=== PATIENT | female | born 1960 | race Caucasian/White ===

== ENCOUNTER 2019-12-01 03:24 | Observation (INO) | payer BC ==
[2019-12-01] MEDS ORDERED: Lidocaine 2% Jelly 5 ML Tube ONE (03:53)
[2019-12-01] MEDS ORDERED: Loperamide 2 MG Cap ONE (03:53)
[2019-12-01] MEDS ORDERED: Sodium Chloride 0.9% 1,000 ML IV ONE (03:55)
[2019-12-01] MEDS ORDERED: HYDROmorphone 1 MG/ML Syringe IVPUSH ONE (04:28)
--- NOTE | 2019-12-01 04:29 | EDM.PDOC ---
ED HPI GENERAL MEDICAL PROBLEM - General Chief Complaint: Gastrointestinal Problem Stated Complaint: diarrhea, hemorrhoids Time Seen by Provider: 12/01/19 03:45 Source of Information: Reports: Patient History Limitations: Reports: No Limitations - History of Present Illness INITIAL COMMENTS - FREE TEXT/NARRATIVE: Patient has diarrhea. That has been going on the past 2 weeks. Since starting her potassium. She says that her hypertension medication has been causing her to have lower potassium. She also has nausea but that has now subsided. She does have a history of a hysterectomy and she had adhesions afterwards and had to have a subcolon resection. She is also complaining of rectal pain and possible internal hemorrhoids. She does not have an appetite. We will be admitting her to observation. Please use this dictation as her admitting history and physical. She received 1 L of IV fluids. She also has hypokalemia and hypocalcemia and also hypo-magnesium. We will also be correcting her electrolyte imbalance and also combat her diarrhea with Imodium and Lomotil. We may also have to use Questran. Her and her were agreeable with this plan. Onset: Gradual Duration: Getting Worse Severity: Moderate Improves with: Reports: None Context: Denies: Sick Contact Associated Symptoms: Reports: Fever/Chills, Loss of Appetite, Malaise, Nausea/ Vomiting, Weakness anal area Pain Score (Numeric/FACES): 1 - Related Data Allergies Allergy/AdvReac Type Severity Reaction Status Date / Time No Known Allergies Allergy Verified 12/01/19 04:21 Home Meds: Home Meds Escitalopram [Lexapro] 20 mg PO DAILY 12/01/19 [History] Lutein 20 mg PO DAILY 12/01/19 [History] Multivitamin [Multi-Vitamin Daily] 1 tab PO DAILY 12/01/19 [History] atorvaSTATin [Lipitor] 20 mg PO DAILY 12/01/19 [History] hydroCHLOROthiazide [Hydrochlorothiazide] 12.5 mg PO DAILY 12/01/19 [History] Past Medical History - Past Surgical History Other Surgical History Comment: Hysterectomy and subtotal colectomy Social & Family History - Tobacco Use Smoking Status *Q: Current Status Unknown ED ROS GENERAL - Review of Systems Review Of Systems: Comprehensive ROS is negative, except as noted in HPI. ED EXAM, GI/ABD - Physical Exam Exam: See Below Exam Limited By: No Limitations General Appearance: Alert (Appears to be lethargic), Lethargic, Moderate Distress Head: Atraumatic, Normocephalic Neck: Normal Inspection, Supple Respiratory/Chest: No Respiratory Distress, Lungs Clear Cardiovascular: Normal Peripheral Pulses, Regular Rate, Rhythm GI/Abdominal Exam: Normal Bowel Sounds, Soft, Tender Neurological: Alert Psychiatric: Normal Affect Skin Exam: Warm, Dry Lymphatic: No Adenopathy Course - Vital Signs Last Recorded V/S: Last Vital Signs Temp 36.6 C 12/01/19 04:51 Pulse 90 12/01/19 04:51 Resp 16 12/01/19 04:51 BP 113/55 L 12/01/19 04:51 Pulse Ox 97 12/01/19 04:51 - Orders/Labs/Meds Orders: Active Orders 24 hr Category Date Time Status Patient Status [ADT] Routine ADT 12/01/19 04:49 Active Antiembolic Devices [RC] 08,20 Care 12/01/19 04:52 Active VTE/DVT Education [RC] .PRN Care 12/01/19 04:52 Active Vital Signs [RC] 02,06,10,14,18,22 Care 12/01/19 04:51 Active Regular Diet [DIET] Diet 12/01/19 Breakfast Active Acetaminophen [Tylenol] Med 12/01/19 04:50 Active 650 mg PO Q4H PRN DVT/VTE Prophylaxis Reflex [OM.PC] Routine Oth 12/01/19 04:50 Ordered Medication Orders Acetaminophen (Tylenol) 650 mg PO Q4H PRN PRN Reason: analgesia/fever Atorvastatin Calcium (Lipitor) 20 mg PO BEDTIME [facility] Hydrochlorothiazide (Hydrochlorothiazide) 12.5 mg PO DAILY [facility] Sodium Chloride (Normal Saline) 1,000 mls @ 75 mls/hr IV ASDIRECTED [facility] Magnesium Sulfate 2 gm/ Premix 50 mls @ 25 mls/hr IV ONETIME ONE Stop: 12/01/19 12:11 Potassium Chloride 20 meq/ (Premix) 50 mls @ 25 mls/hr IV ONETIME ONE Stop: 12/01/19 12:11 Escitalopram 20mg ( (Own Supply)) 1 each PO DAILY [facility] Ondansetron HCl (Zofran) 4 mg IVPUSH Q8H PRN PRN Reason: Nausea Labs: Laboratory Tests 12/01/19 12/01/19 Range/Units 04:07 04:07 WBC 13.4 H (4.0-10.0) x10^3/uL RBC 4.51 (4.00-5.50) x10^6/uL Hgb 13.8 (12.0-16.0) g/dL Hct 39.0 (33.0-47.0) % MCV 86.5 (78.0-93.0) fL MCH 30.6 (26.0-32.0) pg MCHC 35.4 (32.0-36.0) g/dL RDW Coeff of Harry 11.1 (10.0-15.0) % Plt Count 336 (130-400) x10^3/uL Neut % (Auto) 81.8 H (50.0-80.0) % Lymph % (Auto) 6.3 L (25.0-50.0) % [place] % (Auto) 11.4 H (2.0-11.0) % Eos % (Auto) 0.4 (0.0-4.0) % Baso % (Auto) 0.1 L (0.2-1.2) % Sodium 138 (136-145) mmol/L Potassium 3.1 L (3.5-5.1) mmol/L Chloride 98 (98-107) mmol/L Carbon Dioxide 30 (21-32) mmol/L Anion Gap 13.1 (10-20) mmol/L BUN 9 (7-18) mg/dL Creatinine 0.8 (0.55-1.02) mg/dL Est Cr Clr Drug Dosing 50.77 mL/min Estimated GFR (MDRD) > 60 Glucose 126 H (74-106) mg/dL Calcium 8.2 L (8.5-10.1) mg/dL Corrected Calcium 8.60 (8.5-10.1) mg/dL Magnesium 1.5 L (1.8-2.4) mg/dL Total Bilirubin 0.2 (0.2-1.0) mg/dL AST 14 L (15-37) U/L ALT 17 (14-59) U/L Alkaline Phosphatase 120 H (46-116) U/L NT-Pro-B Natriuret Pep 13 (<=125) pg/mL Total Protein 7.0 (6.4-8.2) g/dL Albumin 3.5 (3.4-5.0) g/dL Globulin 3.5 Albumin/Globulin Ratio 1.00 Meds: Medications Generic Name Dose Route Start Last Admin Trade Name Freq PRN Reason Stop Dose Admin Acetaminophen 650 mg 12/01/19 04:50 Tylenol PO Q4H PRN analgesia/fever Atorvastatin Calcium 20 mg 12/01/19 20:00 Lipitor PO BEDTIME ILENE Hydrochlorothiazide 12.5 mg 12/01/19 10:17 Hydrochlorothiazide PO DAILY ILENE Sodium Chloride 1,000 mls @ 75 mls/hr 12/01/19 08:00 Normal Saline IV ASDIRECTED ILENE Magnesium Sulfate 2 gm/ Premix 50 mls @ 25 mls/hr 12/01/19 10:12 IV 12/01/19 12:11 ONETIME ONE Potassium Chloride 20 meq/ 50 mls @ 25 mls/hr 12/01/19 10:12 Premix IV 12/01/19 12:11 ONETIME ONE Escitalopram 20mg ( 1 each 12/01/19 10:19 Own Supply) PO DAILY [facility] Ondansetron HCl 4 mg 12/01/19 09:48 Zofran IVPUSH Q8H PRN Nausea Discontinued Medications Generic Name Dose Route Start Last Admin Trade Name Obiq PRN Reason Stop Dose Admin Citalopram Hydrobromide 40 mg 12/01/19 10:19 Celexa PO DAILY [facility] Hydrochlorothiazide 12.5 mg 12/01/19 08:45 12/01/19 09:03 Hydrochlorothiazide PO Not Given DAILY ILENE Hydromorphone HCl 0.5 mg 12/01/19 04:28 12/01/19 04:33 Dilaudid IVPUSH 12/01/19 04:29 0.5 mg ONETIME ONE Administration Magnesium Chloride 128 mg 12/01/19 08:28 12/01/19 09:05 Mag-64 PO 12/01/19 08:29 128 mg ONETIME ONE Administration Non-Formulary Medication 20 mg 12/01/19 08:45 12/01/19 10:50 Escitalopram [Lexapro] PO Not Given DAILY ILENE Potassium Chloride 40 meq 12/01/19 08:29 12/01/19 09:04 Klor-Con 10 PO 12/01/19 08:30 40 meq ONETIME STA Administration Departure - Departure Time of Disposition: 04:15 Disposition: DC[facility] to [facility] 05 Condition: Good Clinical Impression: Hypokalemia, Hypomagnesemia, Hypocalcemia - Discharge Information *PRESCRIPTION DRUG MONITORING PROGRAM REVIEWED*: Not Applicable *COPY OF PRESCRIPTION DRUG MONITORING REPORT IN PATIENT [place]: Not Applicable Sepsis Event Note - Focused Exam Vital Signs: Vital Signs Temp Pulse Resp BP Pulse Ox 12/01/19 04:51 36.6 C 90 16 113/55 L 97 Date Exam was Performed: 12/01/19 Time Exam was Performed: 11:14 - My Orders Last 24 Hours: My Active Orders 12/01/19 04:49 Patient Status [ADT] Routine 12/01/19 04:50 Acetaminophen [Tylenol] 650 mg PO Q4H PRN DVT/VTE Prophylaxis Reflex [OM.PC] Routine 12/01/19 04:51 Vital Signs [RC] 02,06,10,14,18,22 12/01/19 04:52 Antiembolic Devices [RC] 08,20 VTE/DVT Education [RC] .PRN 12/01/19 Breakfast Regular Diet [DIET] - Assessment/Plan Last 24 Hours: My Active Orders 12/01/19 04:49 Patient Status [ADT] Routine 12/01/19 04:50 Acetaminophen [Tylenol] 650 mg PO Q4H PRN DVT/VTE Prophylaxis Reflex [OM.PC] Routine 12/01/19 04:51 Vital Signs [RC] 02,06,10,14,18,22 12/01/19 04:52 Antiembolic Devices [RC] 08,20 VTE/DVT Education [RC] .PRN 12/01/19 Breakfast Regular Diet [DIET]
[2019-12-01 07:03] LABS: ANION GAP 13.1 mmol/L (10-20); CHLORIDE,CL 98 mmol/L (98-107); SODIUM,NA 138 mmol/L (136-145)
[2019-12-01] MEDS: Sodium Chloride 0.9% 1,000 ML IV SCH ×2 (08:00→18:33)
[2019-12-01] MEDS ORDERED: Magnesium Chloride 64 MG Tab.ER PO ONE (08:28)
[2019-12-01] MEDS ORDERED: Potassium Chloride 10 MEQ Tab.ER PO STA (08:29)
[2019-12-01] MEDS ORDERED: Hydrochlorothiazide 25 MG Tab PO SCH (08:45)
[2019-12-01] MEDS ORDERED: Non-Formulary Medication 1 Each (Escitalopram [Lexapro] 20 MG) PO SCH (08:45)
[2019-12-01] MEDS ORDERED: Magnesium Sulfate/Water 2 GM in Premix Bag 1 BAG IV ONE (10:12)
[2019-12-01] MEDS ORDERED: Potassium Chloride Riders 20 MEQ in Premix Bag 1 BAG IV ONE (10:12)
[2019-12-01] MEDS ORDERED: Hydrochlorothiazide 12.5 MG Cap PO SCH (10:17)
[2019-12-01] MEDS ORDERED: Citalopram 20 MG Tab PO SCH (10:19)
[2019-12-01] MEDS ORDERED: ESCITALOPRAM 20 MG PO SCH (10:19)
[2019-12-01] MEDS: Ondansetron 4 MG/2 ML SDV IVPUSH PRN (11:14)
[2019-12-01] MEDS: LUTEIN 20 MG PO SCH (15:37)
[2019-12-01] MEDS ORDERED: Atropine/Diphenoxylate 0.025-2.5 MG Tab PO PRN (15:38)
[2019-12-01] MEDS ORDERED: Lidocaine 2% HCl 11 ML Jelly Filled Syringe MUCMEM ONE (15:46)
--- NOTE | 2019-12-01 16:13 | PCM.PN ---
- General Info Date of Service: 12/01/19 Admission Dx/Problem (Free Text): Hypokalemia. Hypomagnesemia. Hypocalcemia. Dehydration diarrhea Subjective Update: Patient is having less bowel movements. She just completed her magnesium and her potassium. Her was appear earlier. We will be rechecking her labs here at 6 PM. I did add Lomotil to her regiment I will also be adding labs for the morning. I anticipate she will be discharged in the morning. I will be passing this on to the next provider. Functional Status: Reports: Pain Controlled, Tolerating Diet (Liquid diet essentially bland.) - Review of Systems General: Reports: Weakness, Malaise, Chills HEENT: Reports: No Symptoms Pulmonary: Reports: No Symptoms Cardiovascular: Reports: No Symptoms Gastrointestinal: Reports: Diarrhea, Other (Rectal pain.) Neurological: Reports: No Symptoms Psychiatric: Reports: No Symptoms - Patient Data Vitals - Most Recent: Last Vital Signs Temp 37.1 C 12/01/19 14:00 Pulse 74 12/01/19 14:00 Resp 16 12/01/19 14:00 BP 104/58 L 12/01/19 14:00 Pulse Ox 96 12/01/19 14:00 Weight - Most Recent: 41.957 kg I&O - Last 24 Hours: Intake & Output 12/01/19 12/01/19 12/01/19 06:59 14:59 22:59 Intake Total 100 120 Balance 100 120 Lab Results Last 24 Hours: Laboratory Results - last 24 hr 12/01/19 12/01/19 Range/Units 04:07 04:07 WBC 13.4 H (4.0-10.0) x10^3/uL RBC 4.51 (4.00-5.50) x10^6/uL Hgb 13.8 (12.0-16.0) g/dL Hct 39.0 (33.0-47.0) % MCV 86.5 (78.0-93.0) fL MCH 30.6 (26.0-32.0) pg MCHC 35.4 (32.0-36.0) g/dL RDW Coeff of Harry 11.1 (10.0-15.0) % Plt Count 336 (130-400) x10^3/uL Neut % (Auto) 81.8 H (50.0-80.0) % Lymph % (Auto) 6.3 L (25.0-50.0) % [place] % (Auto) 11.4 H (2.0-11.0) % Eos % (Auto) 0.4 (0.0-4.0) % Baso % (Auto) 0.1 L (0.2-1.2) % Sodium 138 (136-145) mmol/L Potassium 3.1 L (3.5-5.1) mmol/L Chloride 98 (98-107) mmol/L Carbon Dioxide 30 (21-32) mmol/L Anion Gap 13.1 (10-20) mmol/L BUN 9 (7-18) mg/dL Creatinine 0.8 (0.55-1.02) mg/dL Est Cr Clr Drug Dosing 50.77 mL/min Estimated GFR (MDRD) > 60 Glucose 126 H (74-106) mg/dL Calcium 8.2 L (8.5-10.1) mg/dL Corrected Calcium 8.60 (8.5-10.1) mg/dL Magnesium 1.5 L (1.8-2.4) mg/dL Total Bilirubin 0.2 (0.2-1.0) mg/dL AST 14 L (15-37) U/L ALT 17 (14-59) U/L Alkaline Phosphatase 120 H (46-116) U/L NT-Pro-B Natriuret Pep 13 (<=125) pg/mL Total Protein 7.0 (6.4-8.2) g/dL Albumin 3.5 (3.4-5.0) g/dL Globulin 3.5 Albumin/Globulin Ratio 1.00 Med Orders - Current: Current Medications Acetaminophen (Tylenol) 650 mg PO Q4H PRN PRN Reason: analgesia/fever Atorvastatin Calcium (Lipitor) 20 mg PO BEDTIME ILENE Diphenoxylate HCl/Atropine (Lomotil 0.025-2.5 Mg) 1 tab PO TID PRN PRN Reason: Diarrhea Diphenoxylate HCl/Atropine (Lomotil 0.025-2.5 Mg) 2 tab PO BID PRN PRN Reason: Diarrhea Hydrochlorothiazide (Hydrochlorothiazide) 12.5 mg PO DAILY ILENE Sodium Chloride (Normal Saline) 1,000 mls @ 75 mls/hr IV ASDIRECTED ILENE Last Admin: 12/01/19 08:00 Dose: 75 mls/hr Lidocaine HCl (Lidocaine Hcl 2%) 11 ml MUCMEM ONETIME ONE Stop: 12/01/19 15:47 Escitalopram 20mg ( (Own Supply)) 1 each PO DAILY [facility] Lutein 20 Mg (Own (Supply)) 0 mg PO DAILY [facility] Last Admin: 12/01/19 15:37 Dose: Not Given Ondansetron HCl (Zofran) 4 mg IVPUSH Q8H PRN PRN Reason: Nausea Last Admin: 12/01/19 11:14 Dose: 4 mg Discontinued Medications Citalopram Hydrobromide (Celexa) 40 mg PO DAILY [facility] Hydrochlorothiazide (Hydrochlorothiazide) 12.5 mg PO DAILY [facility] Last Admin: 12/01/19 09:03 Dose: Not Given Hydromorphone HCl (Dilaudid) 0.5 mg IVPUSH ONETIME ONE Stop: 12/01/19 04:29 Last Admin: 12/01/19 04:33 Dose: 0.5 mg Magnesium Sulfate 2 gm/ Premix 50 mls @ 25 mls/hr IV ONETIME ONE Stop: 12/01/19 12:11 Last Admin: 12/01/19 11:13 Dose: 25 mls/hr Potassium Chloride 20 meq/ (Premix) 50 mls @ 25 mls/hr IV ONETIME ONE Stop: 12/01/19 12:11 Last Admin: 12/01/19 11:14 Dose: 25 mls/hr Magnesium Chloride (Mag-64) 128 mg PO ONETIME ONE Stop: 12/01/19 08:29 Last Admin: 12/01/19 09:05 Dose: 128 mg Non-Formulary Medication (Escitalopram [Lexapro]) 20 mg PO DAILY [facility] Last Admin: 12/01/19 10:50 Dose: Not Given Potassium Chloride (Klor-Con 10) 40 meq PO ONETIME STA Stop: 12/01/19 08:30 Last Admin: 12/01/19 09:04 Dose: 40 meq - Exam Quality Assessment: No: Supplemental Oxygen General: Alert, Oriented Lungs: Clear to Auscultation Cardiovascular: Regular Rate, Regular Rhythm GI/Abdominal Exam: Normal Bowel Sounds, Soft Skin: Warm, Dry Psy/Mental Status: Alert Sepsis Event Note - Evaluation Sepsis Screening Result: No Definite Risk - Focused Exam Vital Signs: Vital Signs Temp Temp Pulse Resp BP Pulse Ox 12/01/19 14:00 37.1 C 74 16 104/58 L 96 12/01/19 04:51 36.6 C 90 16 113/55 L 97 Date Exam was Performed: 12/01/19 Time Exam was Performed: 16:08 - Problem List Review Problem List Initiated/Reviewed/Updated: No - My Orders Last 24 Hours: My Active Orders 12/01/19 04:49 Patient Status [ADT] Routine 12/01/19 04:50 Acetaminophen [Tylenol] 650 mg PO Q4H PRN DVT/VTE Prophylaxis Reflex [OM.PC] Routine 12/01/19 04:51 Vital Signs [RC] 02,06,10,14,18,22 12/01/19 04:52 Antiembolic Devices [RC] , VTE/DVT Education [RC] .PRN 12/01/19 07:45 Code Status [Resuscitation Status] Routine 12/01/19 08:00 Sodium Chloride 0.9% [Normal Saline] 1,000 ml IV ASDIRECTED 12/01/19 09:48 Ondansetron [Zofran] 4 mg IVPUSH Q8H PRN 12/01/19 10:17 hydroCHLOROthiazide 12.5 mg PO DAILY 12/01/19 10:19 Non-Formulary Medication [NF Drug] 1 each PO DAILY 12/01/19 11:30 CLOSTRIDIUM DIFFICILE TOX RFLX [MREF] Routine STOOL CULTURE [MREF] Routine 12/01/19 11:41 Isolation [COMM] Stat 12/01/19 14:00 Lutein [Lutein] 0 mg PO DAILY 12/01/19 15:38 Atropine/Diphenoxylate [Lomotil 0.025-2.5 MG] 1 tab PO TID PRN 12/01/19 15:42 Atropine/Diphenoxylate [Lomotil 0.025-2.5 MG] 2 tab PO BID PRN 12/01/19 15:46 lidocaine HCL [Lidocaine HCl 2%] 11 ml MUCMEM ONETIME ONE 12/01/19 18:00 CBC WITH AUTO DIFF [HEME] Routine COMPREHENSIVE METABOLIC PN,CMP [CHEM] Routine MAGNESIUM [CHEM] Routine 12/01/19 20:00 atorvaSTATin [Lipitor] 20 mg PO BEDTIME 12/01/19 Breakfast Regular Diet [DIET] - Assessment Assessment:: Electrolyte imbalance. Dehydration. Diarrhea - Plan Plan:: Rechecking labs at 6 PM. Lomotil. I believe that her rectal pain will subside after her bowel movements become more regular. My exam when she presented I could not feel any thrombosed hemorrhoids. Rectal vault was devoid of any villi. No fissure. She reported pain but I could not ascertain a particular internal or external hemorrhoid per se. I treated her with topical lidocaine 1%. Recheck labs again in the morning and most likely will be discharged in the morning.
[2019-12-01] MEDS: Citalopram 20 MG Tab PO SCH (17:54)
[2019-12-01 18:31] LABS: CHLORIDE,CL 105 mmol/L (98-107); SODIUM,NA 142 mmol/L (136-145)
[2019-12-01 18:32] LABS: ANION GAP 11.5 mmol/L (10-20)
[2019-12-01] MEDS: Acetaminophen 325 MG Tab PO PRN (18:33)
[2019-12-01] MEDS ORDERED: atorvaSTATin 10 MG Tab PO SCH (20:00)
[2019-12-01] MEDS ORDERED: Famotidine 20 MG Tab PO ONE (23:39)
[2019-12-01] MEDS ORDERED: Calcium Carbonate 750 MG Tab.Chew PO ONE (23:40)
[2019-12-02] MEDS: Acetaminophen 325 MG Tab PO PRN (02:09)
[2019-12-02] MEDS: Ondansetron 4 MG/2 ML SDV IVPUSH PRN (04:15)
[2019-12-02] MEDS: Atropine/Diphenoxylate 0.025-2.5 MG Tab PO PRN ×2 (04:19→08:59)
[2019-12-02] MEDS: Sodium Chloride 0.9% 1,000 ML IV SCH (07:28)
[2019-12-02 07:35] LABS: CHLORIDE,CL 108 mmol/L (98-107); SODIUM,NA 142 mmol/L (136-145)
[2019-12-02 07:38] LABS: ANION GAP 12.2 mmol/L (10-20)
[2019-12-02] MEDS ORDERED: Hydrochlorothiazide 25 MG Tab PO SCH (08:00)
[2019-12-02] MEDS ORDERED: Loperamide 2 MG Cap PO PRN (08:23)
[2019-12-02] MEDS: Citalopram 20 MG Tab PO SCH (08:59)
[2019-12-02] MEDS: LUTEIN 20 MG PO SCH (09:04)
--- NOTE | 2019-12-02 09:18 | PCM.PN ---
- General Info Date of Service: 12/02/19 Subjective Update: Pt. continues to experience frequent diarrhea. She states that she had 2 large BMs again this morning. Tmax since admission was 39.0. She is on lomotil for the diarrhea. She states that she is having significant rectal pain. No bloody stools. She has a history of hemorroids and previous hemorrhoidectomy. Pt. denies any nausea or vomiting. No chest pain or shortness of breath. No lightheadedness. Pt. has been tolerating food. She has been getting up to the toilet without assistance. Pt. states that she has never gone for a colonoscopy. Denies any sick contacts. No recent hospitalization. No out of country travel. Functional Status: Reports: Pain Controlled, Tolerating Diet - Review of Systems General: Reports: Fever HEENT: Reports: No Symptoms Pulmonary: Reports: No Symptoms Cardiovascular: Reports: No Symptoms Gastrointestinal: Reports: Diarrhea, Flatus, Other (rectal pain) Genitourinary: Reports: No Symptoms Musculoskeletal: Reports: No Symptoms Skin: Reports: No Symptoms Neurological: Reports: No Symptoms Psychiatric: Reports: No Symptoms - Patient Data Vitals - Most Recent: Last Vital Signs Temp 36.9 C 12/02/19 04:40 Pulse 78 12/02/19 04:40 Resp 16 12/02/19 04:40 BP 90/45 L 12/02/19 04:40 Pulse Ox 95 12/02/19 04:40 Weight - Most Recent: 41.957 kg I&O - Last 24 Hours: Intake & Output 12/01/19 12/02/19 12/02/19 22:59 06:59 14:59 Intake Total 1245 Output Total 800 Balance 445 Lab Results Last 24 Hours: Laboratory Results - last 24 hr 12/01/19 12/01/19 12/02/19 Range/Units 18:03 18:03 06:40 WBC 11.1 H 12.1 H (4.0-10.0) x10^3/uL RBC 4.17 3.73 L (4.00-5.50) x10^6/uL Hgb 12.5 11.3 L (12.0-16.0) g/dL Hct 36.9 33.5 (33.0-47.0) % MCV 88.5 89.8 (78.0-93.0) fL MCH 30.0 30.3 (26.0-32.0) pg MCHC 33.9 33.7 (32.0-36.0) g/dL RDW Coeff of Harry 11.2 11.4 (10.0-15.0) % Plt Count 316 299 (130-400) x10^3/uL Neut % (Auto) 73.1 71.5 (50.0-80.0) % Lymph % (Auto) 10.9 L 7.3 L (25.0-50.0) % [place] % (Auto) 15.2 H 20.7 H (2.0-11.0) % Eos % (Auto) 0.6 0.3 (0.0-4.0) % Baso % (Auto) 0.2 0.2 (0.2-1.2) % Sodium 142 (136-145) mmol/L Potassium 3.5 (3.5-5.1) mmol/L Chloride 105 (98-107) mmol/L Carbon Dioxide 29 (21-32) mmol/L Anion Gap 11.5 (10-20) mmol/L BUN 4 L (7-18) mg/dL Creatinine 0.7 (0.55-1.02) mg/dL Est Cr Clr Drug Dosing 58.02 mL/min Estimated GFR (MDRD) > 60 Glucose 119 H (74-106) mg/dL Calcium 8.0 L (8.5-10.1) mg/dL Corrected Calcium 8.88 (8.5-10.1) mg/dL Magnesium 2.1 (1.8-2.4) mg/dL Total Bilirubin 0.2 (0.2-1.0) mg/dL AST 12 L (15-37) U/L ALT 14 (14-59) U/L Alkaline Phosphatase 101 (46-116) U/L Total Protein 6.2 L (6.4-8.2) g/dL Albumin 2.9 L (3.4-5.0) g/dL Globulin 3.3 Albumin/Globulin Ratio 0.88 02//20 Range/Units 06:40 WBC (4.0-10.0) x10^3/uL RBC (4.00-5.50) x10^6/uL Hgb (12.0-16.0) g/dL Hct (33.0-47.0) % MCV (78.0-93.0) fL MCH (26.0-32.0) pg MCHC (32.0-36.0) g/dL RDW Coeff of Harry (10.0-15.0) % Plt Count (130-400) x10^3/uL Neut % (Auto) (50.0-80.0) % Lymph % (Auto) (25.0-50.0) % [place] % (Auto) (2.0-11.0) % Eos % (Auto) (0.0-4.0) % Baso % (Auto) (0.2-1.2) % Sodium 142 (136-145) mmol/L Potassium 3.2 L (3.5-5.1) mmol/L Chloride 108 H (98-107) mmol/L Carbon Dioxide 25 (21-32) mmol/L Anion Gap 12.2 (10-20) mmol/L BUN 6 L (7-18) mg/dL Creatinine 0.6 (0.55-1.02) mg/dL Est Cr Clr Drug Dosing 67.69 mL/min Estimated GFR (MDRD) > 60 Glucose 111 H (74-106) mg/dL Calcium 7.8 L (8.5-10.1) mg/dL Corrected Calcium (8.5-10.1) mg/dL Magnesium 1.8 (1.8-2.4) mg/dL Total Bilirubin (0.2-1.0) mg/dL AST (15-37) U/L ALT (14-59) U/L Alkaline Phosphatase (46-116) U/L Total Protein (6.4-8.2) g/dL Albumin (3.4-5.0) g/dL Globulin Albumin/Globulin Ratio Med Orders - Current: Current Medications Acetaminophen (Tylenol) 650 mg PO Q4H PRN PRN Reason: analgesia/fever Last Admin: 12/02/19 02:09 Dose: 650 mg Atorvastatin Calcium (Lipitor) 20 mg PO BEDTIME [facility] Last Admin: 12/01/19 20:38 Dose: 20 mg Citalopram Hydrobromide (Celexa) 40 mg PO DAILY [facility] Last Admin: 12/02/19 08:59 Dose: 40 mg Diphenoxylate HCl/Atropine (Lomotil 0.025-2.5 Mg) 1 tab PO TID PRN PRN Reason: Diarrhea Last Admin: 12/01/19 18:33 Dose: 1 tab Diphenoxylate HCl/Atropine (Lomotil 0.025-2.5 Mg) 2 tab PO BID PRN PRN Reason: Diarrhea Last Admin: 12/02/19 08:59 Dose: 2 tab Hydrochlorothiazide (Hydrochlorothiazide) 12.5 mg PO DAILY [facility] Last Admin: 12/02/19 08:59 Dose: 12.5 mg Sodium Chloride (Normal Saline) 1,000 mls @ 75 mls/hr IV ASDIRECTED [facility] Last Admin: 12/02/19 07:28 Dose: 75 mls/hr Loperamide HCl (Imodium) 4 mg PO Q6H PRN PRN Reason: Diarrhea Lutein 20 Mg (Own (Supply)) 0 mg PO DAILY [facility] Last Admin: 12/02/19 09:04 Dose: Not Given Ondansetron HCl (Zofran) 4 mg IVPUSH Q8H PRN PRN Reason: Nausea Last Admin: 12/02/19 04:15 Dose: 4 mg Discontinued Medications Calcium Carbonate/Glycine (Tums Extra Strength) 1,500 mg PO ONETIME ONE Stop: 12/01/19 23:41 Last Admin: 12/02/19 05:15 Dose: Not Given Citalopram Hydrobromide (Celexa) 40 mg PO DAILY [facility] Famotidine (Pepcid) 20 mg PO ONETIME ONE Stop: 12/01/19 23:40 Last Admin: 12/02/19 05:15 Dose: Not Given Hydrochlorothiazide (Hydrochlorothiazide) 12.5 mg PO DAILY [facility] Last Admin: 12/01/19 09:03 Dose: Not Given Hydromorphone HCl (Dilaudid) 0.5 mg IVPUSH ONETIME ONE Stop: 12/01/19 04:29 Last Admin: 12/01/19 04:33 Dose: 0.5 mg Magnesium Sulfate 2 gm/ Premix 50 mls @ 25 mls/hr IV ONETIME ONE Stop: 12/01/19 12:11 Last Admin: 12/01/19 11:13 Dose: 25 mls/hr Potassium Chloride 20 meq/ (Premix) 50 mls @ 25 mls/hr IV ONETIME ONE Stop: 12/01/19 12:11 Last Admin: 12/01/19 11:14 Dose: 25 mls/hr Magnesium Chloride (Mag-64) 128 mg PO ONETIME ONE Stop: 12/01/19 08:29 Last Admin: 12/01/19 09:05 Dose: 128 mg Non-Formulary Medication (Escitalopram [Lexapro]) 20 mg PO DAILY [facility] Last Admin: 12/01/19 10:50 Dose: Not Given Escitalopram 20mg ( (Own Supply)) 1 each PO DAILY [facility] Potassium Chloride (Klor-Con 10) 40 meq PO ONETIME STA Stop: 12/01/19 08:30 Last Admin: 12/01/19 09:04 Dose: 40 meq - Exam General: Alert, Oriented HEENT: Mucous Membr. Moist/[place] Neck: Supple Lungs: Clear to Auscultation, Normal Respiratory Effort Cardiovascular: Regular Rate, Regular Rhythm GI/Abdominal Exam: Normal Bowel Sounds, Soft, Non-Tender, No Distention, No Mass (Female) Exam: Normal External Exam, Other (some external hemorrhoids. They are not thrombosed. Rectal exam causes severe discomfort. No obvious mass or abnormality noted during exam.) Back Exam: Normal Inspection, Full Range of Motion Extremities: Normal Inspection, Normal Range of Motion, Non-Tender, No Pedal Edema, Normal Capillary Refill Peripheral Pulses: 4+: Radial (L) Skin: Warm, Dry, Intact Wound/Incisions: Healing Well Neurological: No New Focal Deficit Psy/Mental Status: Alert, Normal Affect, Normal Mood Sepsis Event Note - Evaluation Sepsis Screening Result: No Definite Risk - Focused Exam Vital Signs: Vital Signs Temp Temp Pulse Resp BP Pulse Ox 12/02/19 04:40 36.9 C 78 16 90/45 L 95 12/02/19 02:39 37.3 C 12/02/19 02:09 39.0 C H 12/02/19 02:00 38.8 C H 89 17 96/52 L 94 L 12/01/19 22:00 38.2 C H 80 18 94/52 L 94 L Date Exam was Performed: 12/02/19 Time Exam was Performed: 09:10 - Problem List Review Problem List Initiated/Reviewed/Updated: Yes - My Orders Last 24 Hours: My Active Orders 02/27/20 08:23 Loperamide [Imodium] 4 mg PO Q6H PRN - Assessment Assessment:: Electrolyte imbalance. Dehydration. Diarrhea - Plan Plan:: Rechecking labs at 6 PM. Lomotil. I believe that her rectal pain will subside after her bowel movements become more regular. My exam when she presented I could not feel any thrombosed hemorrhoids. Rectal vault was devoid of any villi. No fissure. She reported pain but I could not ascertain a particular internal or external hemorrhoid per se. I treated her with topical lidocaine 1%. Recheck labs again in the morning and most likely will be discharged in the morning. CT abdomen and pelvis with contrast was ordered. Schedule doses of loperamide 4mg every 6 hours. Continue with lomotil. Stool cultures, O and P, and c diff are pending.
[2019-12-02] MEDS: Vancomycin 125 MG Cap PO SCH ×2 (11:52→15:33)
[2019-12-02] MEDS ORDERED: Iopamidol 612 MG/ML 100 ML Bottle IVPUSH ONE (11:53)
--- NOTE | 2019-12-02 14:13 | CT ---
[id number] CT/CT Abdomen Pelvis W IV EXAM: CT Abdomen Pelvis W IV CLINICAL DATA: ABDOMINAL PAIN DIARRHEA COMPARISON: NO PREVIOUS SIMILAR EXAM IS AVAILABLE. FINDINGS: There is a diffusely abnormal appearance of the large bowel. There is thickening of the wall of the colon There is transmural edema surrounding the colon There is a small amount of free fluid in the abdomen and pelvis There is no free air There is no pneumatosis intestinalis There is periportal edema in the liver This suggests hypotension The kidneys, adrenals, aorta, spleen, and pancreas are unremarkable The mesenteric vessels demonstrate normal enhancement The pelvis shows no mass or adenopathy The uterus and ovaries have been removed The appendix is not seen The gallbladder is moderately distended IMPRESSION: ABOVE DESCRIBED FINDINGS MOST CONSISTENT WITH DIFFUSE PSEUDOMONAS COLITIS Rm Mcgee MD 12/02/19 [id number] Thank you for allowing us to participate in the care of your patient.
--- NOTE | 2019-12-02 14:22 | PCM.DCSUM1 ---
Discharge Summary - Hospital Course Free Text/Narrative:: Pt. was hospitalized yesterday with severe diarrhea that had been present for months. Stool cultures, O and P and c-diff were performed and were positive for c-diff. Pt. has a mild increase in white count today and she has been febrile with t-max 39.0 degrees C. She had been started on lomotil and immodium (which was stopped after getting cdiff and CT results) and was still experiencing severe diarrhea. CT abdomen and pelvis was obtained, showing transluminal edema to the colon, a small amount of free fluid, periportal edema in the liver, suggestive of severe colitis. Pt. has been started on vancomycin 125mg PO. Diagnosis: Stroke: No - Discharge Data Discharge Date: 12/02/19 Discharge Disposition: DC/Tfer to Acute Hospital 02 Condition: Serious - Referral to Home Health Primary Care Physician: RODDY Solis-C - Discharge Diagnosis/Problem(s) (1) Colitis due to Clostridium difficile SNOMED Code(s): 931099538 ICD Code: A04.72 - ENTEROCOLITIS D/T CLOSTRIDIUM DIFFICILE, NOT SPCF RECUR Status: Acute Current Visit: Yes - Discharge Plan *PRESCRIPTION DRUG MONITORING PROGRAM REVIEWED*: Not Applicable *COPY OF PRESCRIPTION DRUG MONITORING REPORT IN PATIENT [place]: Not Applicable Home Medications: Home Meds Escitalopram [Lexapro] 20 mg PO DAILY 12/01/19 [History] Lutein 20 mg PO DAILY 12/01/19 [History] Multivitamin [Multi-Vitamin Daily] 1 tab PO DAILY 12/01/19 [History] atorvaSTATin [Lipitor] 20 mg PO DAILY 12/01/19 [History] hydroCHLOROthiazide [Hydrochlorothiazide] 12.5 mg PO DAILY 12/01/19 [History] Oxygen Therapy Mode: Room Air Forms: ED Department Discharge, Interfacility Transfer EMTALA Referrals: PCP,Unobtain [Ordering Only Provider] - - Discharge Summary/Plan Comment DC Time >30 min.: Yes Discharge Summary/Plan Comment: Pt. will be transferred to [facility] in [place]. Dr. Feliciano is accepting physician. Continue normal saline at 250ml/hr. She has continued to have severe diarrhea. All questions were answered. - General Info Functional Status: Reports: Pain Controlled - Review of Systems General: Reports: Fever HEENT: Reports: No Symptoms Pulmonary: Reports: No Symptoms Cardiovascular: Reports: No Symptoms Gastrointestinal: Reports: Abdominal Pain, Diarrhea, Flatus. Denies: Hematochezia, Melena Genitourinary: Reports: Other (rectal pain on ROSAMARIA, no mass noted.) Musculoskeletal: Reports: No Symptoms Skin: Reports: No Symptoms Neurological: Reports: No Symptoms Psychiatric: Reports: No Symptoms - Patient Data Vitals - Most Recent: Last Vital Signs Temp 37.3 C 12/02/19 10:00 Pulse 81 12/02/19 10:00 Resp 18 12/02/19 10:00 BP 193/52 H 12/02/19 10:00 Pulse Ox 95 12/02/19 10:00 Weight - Most Recent: 41.957 kg I&O - Last 24 hours: Intake & Output 12/01/19 12/02/19 12/02/19 22:59 06:59 14:59 Intake Total 1245 120 Output Total 800 Balance 445 120 Lab Results - Last 24 hrs: Laboratory Results - last 24 hr 12/01/19 12/01/19 12/02/19 Range/Units 18:03 18:03 06:40 WBC 11.1 H 12.1 H (4.0-10.0) x10^3/uL RBC 4.17 3.73 L (4.00-5.50) x10^6/uL Hgb 12.5 11.3 L (12.0-16.0) g/dL Hct 36.9 33.5 (33.0-47.0) % MCV 88.5 89.8 (78.0-93.0) fL MCH 30.0 30.3 (26.0-32.0) pg MCHC 33.9 33.7 (32.0-36.0) g/dL RDW Coeff of Harry 11.2 11.4 (10.0-15.0) % Plt Count 316 299 (130-400) x10^3/uL Neut % (Auto) 73.1 71.5 (50.0-80.0) % Lymph % (Auto) 10.9 L 7.3 L (25.0-50.0) % [place] % (Auto) 15.2 H 20.7 H (2.0-11.0) % Eos % (Auto) 0.6 0.3 (0.0-4.0) % Baso % (Auto) 0.2 0.2 (0.2-1.2) % Sodium 142 (136-145) mmol/L Potassium 3.5 (3.5-5.1) mmol/L Chloride 105 (98-107) mmol/L Carbon Dioxide 29 (21-32) mmol/L Anion Gap 11.5 (10-20) mmol/L BUN 4 L (7-18) mg/dL Creatinine 0.7 (0.55-1.02) mg/dL Est Cr Clr Drug Dosing 58.02 mL/min Estimated GFR (MDRD) > 60 Glucose 119 H (74-106) mg/dL Calcium 8.0 L (8.5-10.1) mg/dL Corrected Calcium 8.88 (8.5-10.1) mg/dL Magnesium 2.1 (1.8-2.4) mg/dL Total Bilirubin 0.2 (0.2-1.0) mg/dL AST 12 L (15-37) U/L ALT 14 (14-59) U/L Alkaline Phosphatase 101 (46-116) U/L Total Protein 6.2 L (6.4-8.2) g/dL Albumin 2.9 L (3.4-5.0) g/dL Globulin 3.3 Albumin/Globulin Ratio 0.88 / Range/Units 06:40 WBC (4.0-10.0) x10^3/uL RBC (4.00-5.50) x10^6/uL Hgb (12.0-16.0) g/dL Hct (33.0-47.0) % MCV (78.0-93.0) fL MCH (26.0-32.0) pg MCHC (32.0-36.0) g/dL RDW Coeff of Harry (10.0-15.0) % Plt Count (130-400) x10^3/uL Neut % (Auto) (50.0-80.0) % Lymph % (Auto) (25.0-50.0) % [place] % (Auto) (2.0-11.0) % Eos % (Auto) (0.0-4.0) % Baso % (Auto) (0.2-1.2) % Sodium 142 (136-145) mmol/L Potassium 3.2 L (3.5-5.1) mmol/L Chloride 108 H (98-107) mmol/L Carbon Dioxide 25 (21-32) mmol/L Anion Gap 12.2 (10-20) mmol/L BUN 6 L (7-18) mg/dL Creatinine 0.6 (0.55-1.02) mg/dL Est Cr Clr Drug Dosing 67.69 mL/min Estimated GFR (MDRD) > 60 Glucose 111 H (74-106) mg/dL Calcium 7.8 L (8.5-10.1) mg/dL Corrected Calcium (8.5-10.1) mg/dL Magnesium 1.8 (1.8-2.4) mg/dL Total Bilirubin (0.2-1.0) mg/dL AST (15-37) U/L ALT (14-59) U/L Alkaline Phosphatase (46-116) U/L Total Protein (6.4-8.2) g/dL Albumin (3.4-5.0) g/dL Globulin Albumin/Globulin Ratio [place] Results - Last 24 hrs: Microbiology 12/01/19 11:30 Clostridioides difficile (PCR) - Final Stool / Feces Clostridioides difficile Toxin Assay - Final Med Orders - Current: Current Medications Acetaminophen (Tylenol) 650 mg PO Q4H PRN PRN Reason: analgesia/fever Last Admin: 12/02/19 02:09 Dose: 650 mg Atorvastatin Calcium (Lipitor) 20 mg PO BEDTIME [facility] Last Admin: 12/01/19 20:38 Dose: 20 mg Citalopram Hydrobromide (Celexa) 40 mg PO DAILY [facility] Last Admin: 12/02/19 08:59 Dose: 40 mg Diphenoxylate HCl/Atropine (Lomotil 0.025-2.5 Mg) 1 tab PO TID PRN PRN Reason: Diarrhea Last Admin: 12/01/19 18:33 Dose: 1 tab Diphenoxylate HCl/Atropine (Lomotil 0.025-2.5 Mg) 2 tab PO BID PRN PRN Reason: Diarrhea Last Admin: 12/02/19 08:59 Dose: 2 tab Hydrochlorothiazide (Hydrochlorothiazide) 12.5 mg PO DAILY [facility] Last Admin: 12/02/19 08:59 Dose: 12.5 mg Sodium Chloride (Normal Saline) 1,000 mls @ 75 mls/hr IV ASDIRECTED [facility] Last Admin: 12/02/19 07:28 Dose: 75 mls/hr Loperamide HCl (Imodium) 4 mg PO Q6H PRN PRN Reason: Diarrhea Lutein 20 Mg (Own (Supply)) 0 mg PO DAILY [facility] Last Admin: 12/02/19 09:04 Dose: Not Given Ondansetron HCl (Zofran) 4 mg IVPUSH Q8H PRN PRN Reason: Nausea Last Admin: 12/02/19 04:15 Dose: 4 mg Vancomycin HCl (Vancomycin) 125 mg PO QID [facility] Last Admin: 12/02/19 11:52 Dose: 125 mg Discontinued Medications Calcium Carbonate/Glycine (Tums Extra Strength) 1,500 mg PO ONETIME ONE Stop: 12/01/19 23:41 Last Admin: 12/02/19 05:15 Dose: Not Given Citalopram Hydrobromide (Celexa) 40 mg PO DAILY [facility] Famotidine (Pepcid) 20 mg PO ONETIME ONE Stop: 12/01/19 23:40 Last Admin: 12/02/19 05:15 Dose: Not Given Hydrochlorothiazide (Hydrochlorothiazide) 12.5 mg PO DAILY [facility] Last Admin: 12/01/19 09:03 Dose: Not Given Hydromorphone HCl (Dilaudid) 0.5 mg IVPUSH ONETIME ONE Stop: 12/01/19 04:29 Last Admin: 12/01/19 04:33 Dose: 0.5 mg Magnesium Sulfate 2 gm/ Premix 50 mls @ 25 mls/hr IV ONETIME ONE Stop: 12/01/19 12:11 Last Admin: 12/01/19 11:13 Dose: 25 mls/hr Potassium Chloride 20 meq/ (Premix) 50 mls @ 25 mls/hr IV ONETIME ONE Stop: 12/01/19 12:11 Last Admin: 12/01/19 11:14 Dose: 25 mls/hr Iopamidol (Isovue-300 (61%)) 100 ml IVPUSH ONETIME ONE Stop: 12/02/19 11:54 Last Admin: 12/02/19 12:52 Dose: 100 ml Magnesium Chloride (Mag-64) 128 mg PO ONETIME ONE Stop: 12/01/19 08:29 Last Admin: 12/01/19 09:05 Dose: 128 mg Non-Formulary Medication (Escitalopram [Lexapro]) 20 mg PO DAILY [facility] Last Admin: 12/01/19 10:50 Dose: Not Given Escitalopram 20mg ( (Own Supply)) 1 each PO DAILY [facility] Potassium Chloride (Klor-Con 10) 40 meq PO ONETIME STA Stop: 12/01/19 08:30 Last Admin: 12/01/19 09:04 Dose: 40 meq - Exam General: Reports: Alert, Oriented Neck: Reports: Supple Lungs: Reports: Clear to Auscultation, Normal Respiratory Effort Cardiovascular: Reports: Regular Rate, Regular Rhythm GI/Abdominal Exam: Normal Bowel Sounds, Soft, No Distention, Tender (diffusely tender ) Rectal (Female) Exam: Normal Rectal Tone, Hemorrhoids, Other (Pain on exam) Back Exam: Reports: Normal Inspection, Full Range of Motion Extremities: Normal Inspection, Normal Range of Motion, Non-Tender, No Pedal Edema, Normal Capillary Refill Skin: Reports: Warm, Dry, Intact Neurological: Reports: No New Focal Deficit Psy/Mental Status: Reports: Alert, Normal Affect, Normal Mood
== END 2019-12-02 16:10 | disposition short-term general hospital (02) ==
LOC: VM.ED 03:24 → VM.MS 04:53
PROVIDERS: ADMIT Physician Assistant; ATTEND Physician Assistant
DX: A04.72 Enterocolitis due to Clostridium difficile, not specified as recurrent (principal); E87.6 Hypokalemia; E83.42 Hypomagnesemia; E83.51 Hypocalcemia; E86.0 Dehydration; Z79.899 Other long term (current) drug therapy; Z90.49 Acquired absence of other specified parts of digestive tract
CPT/HCPCS: 36415; 74177; 80048; 80053; 82330; 83735; 83880; 85025; 87045; 87046; 87230; 87493; 96361; 96365; 96366; 96368; 96375; 96376; 99285; A9270; G0378; J1170; J2405; J3475; J3480; J7030; Q9967; 96374

== ENCOUNTER 2020-09-29 13:30 | Emergency (ER) | payer BC, OTHER, SELFPAY ==
[2020-09-29 14:56] LABS: ANION GAP 12.5 mmol/L (10-20); CHLORIDE,CL 100 mmol/L (98-107); SODIUM,NA 139 mmol/L (136-145)
[2020-09-29] MEDS ORDERED: Meclizine 25 MG Tab PO ONE (15:15)
--- NOTE | 2020-09-30 21:47 | EDM.PDOC ---
ED HPI GENERAL MEDICAL PROBLEM - General Chief Complaint: General Time Seen by Provider: 09/29/20 13:30 Source of Information: Reports: Patient History Limitations: Reports: No Limitations - History of Present Illness INITIAL COMMENTS - FREE TEXT/NARRATIVE: PtAbram presents to ER with complaints of dizziness and fall. She states that she was working in her kitchen when the symptoms started. She states that she was trying to get something off an upper shelf when the symptoms started. She states that she fell and hit her head on furniture but denies any LOC. Denies any recent illness. She states that she continues to have some vertigo. She states that she has had similar vertigo in the past and states that this seems similar. She denies any ear discomfort. No chest pain or shortness of breath. No recent illness. No nausea, vomiting, or diarrhea. She states that she has been having symptoms of a URI with ear fullness recently. Onset Date: 09/29/20 Location: Reports: Head, Generalized - Related Data Allergies Allergy/AdvReac Type Severity Reaction Status Date / Time No Known Allergies Allergy Verified 09/29/20 13:54 Home Meds: Home Meds Escitalopram [Lexapro] 20 mg PO DAILY 12/01/19 [History] Lutein 20 mg PO DAILY 12/01/19 [History] Multivitamin [Multi-Vitamin Daily] 1 tab PO DAILY 12/01/19 [History] atorvaSTATin [Lipitor] 20 mg PO DAILY 12/01/19 [History] hydroCHLOROthiazide [Hydrochlorothiazide] 12.5 mg PO DAILY 12/01/19 [History] Potassium Chloride [Klor-Con 10] 10 meq PO DAILY 09/29/20 [History] Past Medical History Cardiovascular History: Reports: High Cholesterol, Hypertension Psychiatric History: Reports: Anxiety - Infectious Disease History Infectious Disease History: Reports: C-Difficile - Past Surgical History Other Surgical History Comment: Hysterectomy and subtotal colectomy Social & Family History - Tobacco Use Tobacco Use Status *Q: Unknown Ever Used Tobacco - Caffeine Use Caffeine Use: Reports: None ED ROS GENERAL - Review of Systems Review Of Systems: See Below Constitutional: Reports: No Symptoms. Denies: Fever, Chills, Malaise, Weakness, Fatigue, Night Sweats, Diaphoresis, Weight Loss, Weight Gain HEENT: Reports: Rhinitis, Sinus Problem, Other (ear fullness, URI symptoms) Respiratory: Reports: No Symptoms Cardiovascular: Reports: No Symptoms Endocrine: Reports: No Symptoms GI/Abdominal: Reports: No Symptoms : Reports: No Symptoms Musculoskeletal: Reports: No Symptoms Skin: Reports: No Symptoms Neurological: Reports: Dizziness. Denies: Confusion, Headache, Numbness, Paresthesia, Pre-Existing Deficit, Seizure, Syncope, Tingling, Tremors, Trouble Speaking, Difficulty Walking, Weakness, Gait Disturbance Psychiatric: Reports: No Symptoms Hematologic/Lymphatic: Reports: No Symptoms Immunologic: Reports: No Symptoms ED EXAM, GENERAL - Physical Exam Exam: See Below Exam Limited By: No Limitations General Appearance: Alert, WD/WN, No Apparent Distress Eye Exam: Bilateral Eye: EOMI, Normal Fundi, Normal Inspection, Nystagmus (horizontal nystagmus), PERRL Ears: Other (fluid behind both TMs) Throat/Mouth: Normal Inspection, Normal Lips, Normal Teeth, Normal Gums, Normal Oropharynx, Normal Voice, No Airway Compromise Head: Atraumatic, Normocephalic Neck: Normal Inspection, Supple, Non-Tender, Full Range of Motion Respiratory/Chest: No Respiratory Distress, Lungs Clear, Normal Breath Sounds, No Accessory Muscle Use, Chest Non-Tender Cardiovascular: Normal Peripheral Pulses, Regular Rate, Rhythm, No Edema, No Gallop, No JVD, No Murmur, No Rub Peripheral Pulses: 4+: Radial (L) GI/Abdominal: Soft, Non-Tender, No Distention, No Mass (Female) Exam: Deferred Rectal (Female) Exam: Deferred Back Exam: Normal Inspection, Full Range of Motion Extremities: Normal Inspection, Normal Range of Motion, Non-Tender, No Pedal Edema, Normal Capillary Refill Neurological: Alert, Oriented, CN II-XII Intact, Normal Cognition, Normal Gait, Normal Reflexes, No Motor/Sensory Deficits Psychiatric: Normal Affect, Normal Mood Skin Exam: Warm, Dry, Intact, Normal Color, No Rash Lymphatic: No Adenopathy #1 Interpretation Rhythm: NSR [place]: Normal P-Wave: Present QRS: Normal ST-T: Normal QT: Normal Course - Vital Signs Last Recorded V/S: Last Vital Signs Temp 36.8 C 09/29/20 13:34 Pulse 88 09/29/20 14:37 Resp 18 09/29/20 13:34 BP 133/68 09/29/20 14:37 Pulse Ox 96 09/29/20 13:34 - Orders/Labs/Meds Labs: Laboratory Tests 09/29/20 09/29/20 09/29/20 Range/Units 13:47 14:20 14:20 WBC 8.4 (4.0-10.0) x10^3/uL RBC 4.56 (4.00-5.50) x10^6/uL Hgb 13.7 D (12.0-16.0) g/dL Hct 39.7 (33.0-47.0) % MCV 87.1 (78.0-93.0) fL MCH 30.0 (26.0-32.0) pg MCHC 34.5 (32.0-36.0) g/dL RDW Coeff of Harry 11.7 (10.0-15.0) % Plt Count 362 (130-400) x10^3/uL Neut % (Auto) 82.2 H (50.0-80.0) % Lymph % (Auto) 11.9 L (25.0-50.0) % [place] % (Auto) 4.7 (2.0-11.0) % Eos % (Auto) 0.8 (0.0-4.0) % Baso % (Auto) 0.4 (0.2-1.2) % PT 9.7 (9.5-12.3) SEC INR 0.9 L (2.0-3.5) APTT (25.6-32.8) SEC Sodium (136-145) mmol/L Potassium (3.5-5.1) mmol/L Chloride (98-107) mmol/L Carbon Dioxide (21-32) mmol/L Anion Gap (10-20) mmol/L BUN (7-18) mg/dL Creatinine (0.55-1.02) mg/dL Est Cr Clr Drug Dosing Estimated GFR (MDRD) Glucose (74-106) mg/dL Calcium (8.5-10.1) mg/dL Corrected Calcium (8.5-10.1) mg/dL Magnesium (1.8-2.4) mg/dL Total Bilirubin (0.2-1.0) mg/dL AST (15-37) U/L ALT (14-59) U/L Alkaline Phosphatase (46-116) U/L Troponin I (<=0.056) ng/mL C-Reactive Protein (<=0.9) mg/dL Total Protein (6.4-8.2) g/dL Albumin (3.4-5.0) g/dL Globulin Albumin/Globulin Ratio TSH, Ultra Sensitive (0.358-3.74) uIU/mL SARS CoV-2 RNA Rapid CORNELIUS Negative (NEGATIVE) 09/29/20 09/29/20 Range/Units 14:20 14:20 WBC (4.0-10.0) x10^3/uL RBC (4.00-5.50) x10^6/uL Hgb (12.0-16.0) g/dL Hct (33.0-47.0) % MCV (78.0-93.0) fL MCH (26.0-32.0) pg MCHC (32.0-36.0) g/dL RDW Coeff of Harry (10.0-15.0) % Plt Count (130-400) x10^3/uL Neut % (Auto) (50.0-80.0) % Lymph % (Auto) (25.0-50.0) % [place] % (Auto) (2.0-11.0) % Eos % (Auto) (0.0-4.0) % Baso % (Auto) (0.2-1.2) % PT (9.5-12.3) SEC INR (2.0-3.5) APTT 26.3 (25.6-32.8) SEC Sodium 139 (136-145) mmol/L Potassium 3.5 (3.5-5.1) mmol/L Chloride 100 (98-107) mmol/L Carbon Dioxide 30 (21-32) mmol/L Anion Gap 12.5 (10-20) mmol/L BUN 7 (7-18) mg/dL Creatinine 0.7 (0.55-1.02) mg/dL Est Cr Clr Drug Dosing TNP Estimated GFR (MDRD) > 60 Glucose 113 H (74-106) mg/dL Calcium 9.6 D (8.5-10.1) mg/dL Corrected Calcium 9.68 (8.5-10.1) mg/dL Magnesium 1.8 (1.8-2.4) mg/dL Total Bilirubin 0.3 (0.2-1.0) mg/dL AST 17 (15-37) U/L ALT 26 (14-59) U/L Alkaline Phosphatase 117 H (46-116) U/L Troponin I < 0.017 (<=0.056) ng/mL C-Reactive Protein < 0.2 (<=0.9) mg/dL Total Protein 7.2 (6.4-8.2) g/dL Albumin 3.9 (3.4-5.0) g/dL Globulin 3.3 Albumin/Globulin Ratio 1.18 TSH, Ultra Sensitive 1.151 (0.358-3.74) uIU/mL SARS CoV-2 RNA Rapid CORNELIUS (NEGATIVE) Meds: Medications Discontinued Medications Generic Name Dose Route Start Last Admin Trade Name Freq PRN Reason Stop Dose Admin Meclizine HCl 25 mg 09/29/20 15:15 09/29/20 15:25 Antivert PO 09/29/20 15:16 25 mg ONETIME ONE Administration Departure - Departure Time of Disposition: 15:00 Disposition: Home, Self-Care 01 Clinical Impression: Vertigo - Discharge Information Instructions: Vertigo, [id number] Referrals: PCP,None [Primary Care Provider] - Forms: ED Department Discharge Additional Instructions: Home to rest. meclizine 25 mg 1 tab twice daily as needed for vertigo You do have some fluid behind your eardrum which could be contributing to your symptoms. For this, you can try over the counter antihistimines or decongestants. Follow-up with your PCP in 7-10 days, sooner if not gradually improving. Sepsis Event Note (ED) - Evaluation Sepsis Screening Result: No Definite Risk - Assessment/Plan Plan: Home to rest. meclizine 25 mg 1 tab twice daily as needed for vertigo You do have some fluid behind your eardrum which could be contributing to your symptoms. For this, you can try over the counter antihistimines or decongestants. Follow-up with your PCP in 7-10 days, sooner if not gradually improving.
== END 2020-09-29 15:27 | disposition home or self-care (01) ==
LOC: VM.ED 13:30
DX: R42 Dizziness and giddiness (principal); E78.00 Pure hypercholesterolemia, unspecified; I10 Essential (primary) hypertension; F41.9 Anxiety disorder, unspecified; Z79.899 Other long term (current) drug therapy; Z20.828 Contact with and (suspected) exposure to other viral communicable diseases
CPT/HCPCS: 36415; 80053; 83735; 84443; 84484; 85025; 85610; 85730; 86140; 93005; 93010; 99284; 99284-25; A9270-GY; U0002